=== PATIENT | female | born 1980 | race Hispanic/Latino ===

== ENCOUNTER 2018-12-22 21:27 | Emergency (ER) | payer OTHER, BC ==
[~2018-12-22] VITALS: Ht 167.6 cm; Wt 102.1 kg
--- OUTSIDE RECORDS SUMMARY | 2018-12-22 21:31 | XMS REPORT ---
Author Author Wesley Olson Organization e[employer] Address Unknown Phone Unavailable Care Team Providers Care Drug Safety Specialist Name Role Phone Wesley Olson CP Unavailable Allergies No Known Allergies Problems Problem Type Condition Code Onset Dates Condition Status Problem Obesity E66.9 Active Problem Menstrual cycle problem N92.6 Active Problem Other obesity due to excess calories E66.09 Active Problem BMI 38.0-38.9,adult Z68.38 Active Problem Vitamin D deficiency E55.9 Active Problem Other and unspecified hyperlipidemia E78.5 Active Problem Body mass index (BMI) of 35.0-35.9 in adult Z68.35 Active Problem Prediabetes R73.03 Active Medications No Known Medications Results No Known Results Summary Purpose eClinicalWorks Submission
--- OUTSIDE RECORDS SUMMARY | 2018-12-22 21:31 | XMS REPORT | Continuity of Care Document ---
Author Author [facility] Interface Address Unknown Phone Unavailable Problems Problem Status Onset Date Classification Date Reported Comments Source BMI 30.0-30.9,adult Active Diagnosis 09/10/2018 [facility] Primary Obesity Active Diagnosis 09/10/2018 [facility] Primary,[facility] Low vitamin D level Active Problem 09/10/2018 [facility] Environmental allergies Active Problem 09/10/2018 [facility] Primary Obesity Active Problem 12/28/2013 [facility] Vitamin d deficiency Active Diagnosis 12/28/2013 [facility] Prediabetes Active Problem 12/28/2013 [facility] Hyperlipidemia Active Problem 12/28/2013 [facility] BV Active Diagnosis 12/28/2013 [facility] Encounter for screening mammogram for breast cancer Active Diagnosis 06/23/2017 [facility] Encntr for general adult medical exam w/o abnormal findings Active Diagnosis 06/23/2017 [facility] Other obesity due to excess calories Active Problem 05/12/2018 [facility] BMI 38.0-38.9,adult Active Problem 05/12/2018 [facility] Vitamin D deficiency Active Problem 05/12/2018 [facility] Other and unspecified hyperlipidemia Active Problem 05/12/2018 [facility] Body mass index of 35.0-35.9 in adult Active Problem 05/12/2018 [facility] Prediabetes Active Problem 05/12/2018 [facility] Upper respiratory tract infection, unspecified type Active Diagnosis 08/11/2018 [facility] Subacute sinusitis, unspecified location Active Diagnosis 05/12/2018 [facility] Sore throat Active Diagnosis 05/12/2018 [facility] Medications Medication Details Route Status Patient Instructions Ordering Provider Order Date Source ProAir HFA 2 puffs as needed Inhalation Active 108 (90 Base) MCG/ACT Inhalation every 6 hrs as needed Chaitanya 08/10/2018 [facility] Levocetirizine Dihydrochloride 1 tablet in the evening Orally Active 5 MG Orally Once a day 08/10/2018 [facility] Fluticasone Propionate 1 spray in each nostril Nasally Active 50 MCG/ACT Nasally Once a day 08/10/2018 [facility] Dhgglyxuo-Ttxknmyx-PI 10 ml as needed Orally Active 30-2-10 MG/5ML Orally every 6 hrs as needed 08/10/2018 [facility] PredniSONE 1 tablet Orally Active 10 mg Orally Once a day 08/10/2018 [facility] Azithromycin as directed Orally Active 250 MG Orally Once a day 08/10/2018 [facility] Bromfed DM 10 ml Orally Active 30-2-10 MG/5ML Orally every 4 hrs prn [facility] 05/06/2018 [facility] Levaquin 1 tablet Orally Active 500 mg Orally Once a day Edwin Doyle 05/06/2018 [facility] Metronidazole 1 tablet Orally Active 500 mg Orally Twice a day [place] 12/02/2013 [facility] Vitamin D (Ergocalciferol) 1 capsule Orally Active 40550 UNIT Orally once per week [place] 11/23/2013 [facility] IUD's not defined NA Active [facility] IUD's Unknown Intrauterine Active Intrauterine [place] [facility] Claritin 1 tablet Orally Active 10 MG Orally Once a day [place] [facility] Progesterone 1 capsule at bedtime PO Active 50mg SR PO Once a day [facility] Claritin 1 tablet Orally Active 10 MG Orally Once a day [facility] Allergies, Adverse Reactions, Alerts Substance Category Reaction Severity Reaction type Status Date Reported Comments Source N.K.D.A. Adverse Reaction Info Not Available Adverse Reaction Active 09/09/2018 [facility] Immunizations Immunization Date Given Site Status Last Updated Comments Source Results Order Name Results Value Reference Range Date Interpretation Comments Source Vital Signs Vital Sign Value Date Comments Source Weight 231.6 09/09/2018 [facility] Height 64 09/09/2018 [facility] Temperature Oral (F) 98.5 F 09/09/2018 [facility] Heart Rate 101 09/09/2018 [place] [facility] Diastolic (mm Hg) 90 09/09/2018 [facility] Systolic (mm Hg) 130 09/09/2018 [facility] Weight 231.1 08/10/2018 [facility] Height 64 08/10/2018 [facility] Temperature Oral (F) 97.2 F 08/10/2018 [facility] Heart Rate 90 08/10/2018 [facility] Diastolic (mm Hg) 88 08/10/2018 [facility] Systolic (mm Hg) 128 08/10/2018 [facility] Weight 230 05/06/2018 [facility] Height 66 05/06/2018 [facility] Temperature Oral (F) 98.3 F 05/06/2018 [facility] Heart Rate 86 05/06/2018 [facility] Diastolic (mm Hg) 82 05/06/2018 [facility] Systolic (mm Hg) 120 05/06/2018 [facility] Weight 240 06/17/2017 [facility] Height 66 06/17/2017 [facility] Heart Rate 85 06/17/2017 [facility] Diastolic (mm Hg) 82 06/17/2017 [facility] Systolic (mm Hg) 122 06/17/2017 [facility] Weight 223 12/02/2013 [facility] Height 66 12/02/2013 [facility] Heart Rate 84 12/02/2013 [facility] Diastolic (mm Hg) 90 12/02/2013 [facility] Systolic (mm Hg) 128 12/02/2013 [facility] Weight 224 11/15/2013 [facility] Height 66 11/15/2013 [facility] Temperature Oral (F) 98.0 F 11/15/2013 [facility] Heart Rate 80 11/15/2013 [facility] Diastolic (mm Hg) 80 11/15/2013 [facility] Systolic (mm Hg) 124 11/15/2013 [facility] Encounters Location Location Details Encounter Type Encounter Number Reason For Visit Attending Provider ADM Date DC Date Status Source [facility] intake counselor/wwe/fbw [id number] 11/15/2013 11/15/2013 [facility] intake counselor/wwe/fbw [id number] 11/15/2013 11/15/2013 [facility] intake counselor/wwe/fbw [id number] 11/15/2013 11/15/2013 [facility] intake counselor/wwe/fbw [id number] 11/15/2013 11/15/2013 [facility] intake counselor/wwe/fbw [id number] 11/15/2013 11/15/2013 [facility] intake counselor/wwe/fbw [id number] 11/15/2013 11/15/2013 [facility] Test results [id number] 11/23/2013 11/23/2013 [facility] Test results [id number] 11/23/2013 11/23/2013 [facility] Test results [id number] 11/23/2013 11/23/2013 [facility] Test results [id number] 11/23/2013 11/23/2013 [facility] Test results [id number] 11/23/2013 11/23/2013 [facility] Update Demographics - Additional Info [id number] 11/25/2013 11/25/2013 [facility] Update Demographics - Additional Info [id number] 11/25/2013 11/25/2013 [facility] Update Demographics - Additional Info [id number] 11/25/2013 11/25/2013 [facility] Update Demographics - Additional Info [id number] 11/25/2013 11/25/2013 [facility] Update Demographics - Personal Info [id number] 11/25/2013 11/25/2013 [facility] Update Demographics - Additional Info [id number] 11/25/2013 11/25/2013 [facility] Update Demographics - Personal Info [id number] 11/25/2013 11/25/2013 [facility] Update Demographics - Additional Info [id number] 11/25/2013 11/25/2013 [facility] Update Demographics - Personal Info [id number] 11/25/2013 11/25/2013 [facility] Update Demographics - Additional Info [id number] 11/25/2013 11/25/2013 [facility] Update Demographics - Personal Info [id number] 11/25/2013 11/25/2013 [facility] Demographics - Additional Info [id number] 11/25/2013 11/25/2013 [facility] f/u lab [id number] 12/02/2013 12/02/2013 [facility] Procedures Procedure Code Date Perfomer Comments Source
--- OUTSIDE RECORDS SUMMARY | 2018-12-22 21:31 | XMS REPORT ---
Author Author Laurie Caban Organization e[employer] Address Unknown Phone Unavailable Care Team Providers Care Mixer Wet Pour Name Role Phone Laurie Caban CP Unavailable Encounters Encounter Location Date inpatient services rn/wwe/fbw [facility] November 15, 2013 Test results [facility] November 23, 2013 Problems Problem Type Condition ICD-9 Code Onset Dates Condition Status Problem Obesity 278.00 Active Medications Medication Code System Code Instructions Start Date End Date Status Dosage Vitamin D (Ergocalciferol) [facility] [address]-20 27035 UNIT Orally once per week November 23, 2013 Feb 21, 2014 Active 1 capsule Social History Social History Element Qualifiers Date Reported Ethnicity . Status , Is chinese your primary language? Yes November 15, 2013 Tobacco Use: . Are you a: never smoker November 15, 2013 Use of recreational / street drugs? . Answer: No November 15, 2013 Sexual Hx: . Had sex in the last 12 months (vaginal, oral, or anal)?: Yes, with: Men only, Use protection?: Yes, How often?: 70%, Have you ever had an STD?: Yes, Chlamydia?: Yes, LMP:: 11/03/2013 November 15, 2013 children . 1 son November 15, 2013 Do you have pets? . Status: Yes, Type: dog(s) November 15, 2013 Marital Status: . Single November 15, 2013 Caffeine intake? . Status: Yes, What type: Tea, Soft Drinks, 1 - 2 cup(s) a day November 15, 2013 Do you exercise? . Answer: No November 15, 2013 Do you drink alcohol? . Status: Yes, Type: Liquor, How often? Rarely, How much? 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
--- OUTSIDE RECORDS SUMMARY | 2018-12-22 21:31 | XMS REPORT ---
Author Author Wesley Olson Organization [employer] Address Unknown Phone Unavailable Care Team Providers Care Solution Director Name Role Phone Wesley Olson CP Unavailable [...]
--- OUTSIDE RECORDS SUMMARY | 2018-12-22 21:31 | XMS REPORT ---
Author Author Rina Tavares Organization [employer] Address Unknown Phone Unavailable Care Team Providers Care Power House Control Room Operator Name Role Phone Moiz Tavaresjiha Unavailable Allergies, Adverse Reactions, Alerts Substance Reaction Event Type N.K.D.A. Info Not Available Non Drug Allergy Problems Problem Type Condition Code Onset Dates Condition Status Assessment Obesity (BMI 30-39.9) E66.9 Active Problem Obesity (BMI 30-39.9) E66.9 Active Problem Environmental allergies Z91.09 Active Problem BMI 30.0-30.9,adult Z68.30 Active Assessment Environmental allergies Z91.09 Active Assessment BMI 30.0-30.9,adult Z68.30 Active Assessment Upper respiratory tract infection, unspecified type J06.9 Active Medications Medication Code System Code Instructions Start Date End Date Status Dosage Qfcobtmud-Juqvnhna-RH [facility] 29648305577 30-2-10 MG/5ML Orally every 6 hrs as needed Aug 10, 2018 Aug 20, 2018 Active 10 ml as needed PredniSONE ND 90029400262 10 mg Orally Once a day Aug 10, 2018 Aug 15, 2018 Active 1 tablet Fluticasone Propionate ND 96919881220 50 MCG/ACT Nasally Once a day Aug 10, 2018 Active 1 spray in each nostril IUD's NDC 0 Active not defined ProAir HFA [facility] 28911921181 108 (90 Base) MCG/ACT Inhalation every 6 hrs as needed Aug 10, 2018 Active 2 puffs as needed Azithromycin ND 20844787591 250 MG Orally Once a day Aug 10, 2018 Aug 15, 2018 Active as directed Levocetirizine Dihydrochloride ND 78296292126 5 MG Orally Once a day Aug 10, 2018 Sep 09, 2018 Active 1 tablet in the evening Vital Signs Date/Time: Aug 10, 2018 BMI 39.66 Index Weight 231.1 lbs Height 64 in Temperature 97.2 F Cardiac Monitoring Heart Rate 90 /min Blood Pressure Diastolic 88 mm Hg Blood Pressure Systolic 128 mm Hg Results No Known Results Summary Purpose eClinicalWorks Submission
--- OUTSIDE RECORDS SUMMARY | 2018-12-22 21:31 | XMS REPORT ---
Author Author Wesley Olson Organization [employer] Address Unknown Phone Unavailable Care Team Providers Care Basket Hand Braider Name Role Phone Wesley Olson Unavailable Encounters Encounter Location Date Update Demographics - Personal Info [facility] November 25, 2013 Update Demographics - Additional Info [facility] November 25, 2013 vocational training instructor/wwe/fbw [facility] November 15, 2013 Test results [facility] November 23, 2013 Update Demographics - Additional Info [facility] November 25, 2013 Problems Problem Type Condition ICD-9 Code Onset Dates Condition Status Problem Obesity 278.00 Active Social History Social History Element Qualifiers Date Reported Ethnicity . Status , Is setswana your primary language? Yes November 15, 2013 [...]
--- OUTSIDE RECORDS SUMMARY | 2018-12-22 21:31 | XMS REPORT ---
Author Author Wesley Olson Organization [employer] Address Unknown Phone Unavailable Care Team Providers Care Hoop Expander Name Role Phone Wesley Olson Unavailable Encounters Encounter Location Date Update Demographics - Personal Info [facility] November 25, 2013 Update Demographics - Additional Info [place] [facility] November 25, 2013 area director/wwe/fbw [place] [facility] November 15, 2013 Test results [facility] November 23, 2013 Update Demographics - Additional Info [facility] November 25, 2013 Problems Problem Type Condition [...]
--- OUTSIDE RECORDS SUMMARY | 2018-12-22 21:31 | XMS REPORT ---
Author Author Laurie Castano [facility] eClinicalWorks Address Unknown Phone Unavailable Care Team Providers Care Irrigation Foreman Name Role Phone Laurie Castano CP Unavailable Allergies, Adverse Reactions, Alerts Substance Reaction Event Type N.K.D.A. Info Not Available Non Drug Allergy Problems Problem Type Condition Code Onset Dates Condition Status Assessment Subacute sinusitis, unspecified location J01.90 Active Problem Obesity E66.9 Active Assessment Sore throat J02.9 Active Problem Menstrual cycle problem N92.6 Active Problem Other obesity due to excess calories E66.09 Active Problem BMI 38.0-38.9,adult Z68.38 Active Problem Vitamin D deficiency E55.9 Active Problem Other and unspecified hyperlipidemia E78.5 Active Problem Body mass index (BMI) of 35.0-35.9 in adult Z68.35 Active Problem Prediabetes R73.03 Active Medications Medication Code System Code Instructions Start Date End Date Status Dosage Progesterone NDC [address]-17 50mg SR PO Once a day Active 1 capsule at bedtime Bromfed DM NDC 57860645940 30-2-10 MG/5ML Orally every 4 hrs prn May 06, 2018 Jun 05, 2018 Active 10 ml IUD's NDC 0 Intrauterine Active not defined Levaquin NDC 89807758416 500 mg Orally Once a day May 06, 2018 May 16, 2018 Active 1 tablet Vital Signs Date/Time: May 06, 2018 BMI 37.12 Index Weight 230 lbs Height 66 in Temperature 98.3 F Cardiac Monitoring Heart Rate 86 /min Blood Pressure Diastolic 82 mm Hg Blood Pressure Systolic 120 mm Hg Results Name Result Date Reference Range Unit Abnormality Flag RAPID STREP ----Negative neg [id number] Summary Purpose eClinicalWorks Submission
--- OUTSIDE RECORDS SUMMARY | 2018-12-22 21:31 | XMS REPORT ---
Author Author Laurie Caban [facility] eClinicalWorks Address Unknown Phone Unavailable Care Team Providers Care Veterans Adviser Name Role Phone Laurie Caban CP Unavailable Allergies, Adverse Reactions, Alerts Substance Reaction Event Type N.K.D.A. Info Not Available Non Drug Allergy Encounters Encounter Location Date nonprofit director/wwe/fbw [facility] November 15, 2013 Problems Problem Type Condition ICD-9 Code Onset Dates Condition Status Assessment Encounter for routine gynecological examination V72.31 Active Assessment Obesity 278.00 Active Problem Obesity 278.00 Active Medications Medication Code System Code Instructions Start Date End Date Status Dosage Claritin MEDISPAN [address]-70 10 MG Orally Once a day Active 1 tablet IUD's Unknown 0 Intrauterine Active Unknown Social History Social History Element Qualifiers Date [...] 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 mm Hg Results CBC With Differential/Platelet Lymphs(-14-46 %) 42 Neutrophils(-40-74 %) 50 Baso (Absolute)(-0.0-0.2 x10E3/uL) 0.0 Hemoglobin(-11.1-15.9 g/dL) 14.4 Eos (Absolute)(-0.0-0.4 x10E3/uL) 0.1 Hematocrit(-34.0-46.6 %) 43.1 Monocytes(Absolute)(-0.1-0.9 x10E3/uL) 0.4 MCV(-79-97 fL) 89 Lymphs (Absolute)(-0.7-3.1 x10E3/uL) 2.5 MCH(-26.6-33.0 pg) 29.9 Neutrophils (Absolute)(-1.4-7.0 x10E3/uL) 3.0 MCHC(-31.5-35.7 g/dL) 33.4 Immature Granulocytes(-0-2 %) 0 Basos(-0-3 %) 0 RDW(-12.3-15.4 %) 14.9 Immature Grans (Abs)(-0.0-0.1 x10E3/uL) 0.0 WBC(-3.4-10.8 x10E3/uL) 6.0 Platelets(-155-379 x10E3/uL) 385 Eos(-0-5 %) 2 RBC(-3.77-5.28 x10E6/uL) 4.82 Monocytes(-4-12 %) 6 Panel [id number] HIV 1/O/2 Abs-Index Value(-<1.00 ) <1.00 HIV 1/O/2 Abs, Qual(-Non Reactive ) Non Reactive Urinalysis, Routine Occult Blood(-Negative ) Negative Ketones(-Negative ) Negative Glucose(-Negative ) Negative Protein(-Negative/Trace ) Negative WBC Esterase(-Negative ) Negative Urobilinogen,Semi-Qn(-0.0-1.9 mg/dL) 0.2 Bilirubin(-Negative ) Negative Microscopic Examination(- ) Comment Nitrite, Urine(-Negative ) Negative Specific [place](-1.005-1.030 ) 1.022 pH(-5.0-7.5 ) 5.5 Urine-Color(-Yellow ) Yellow Appearance(-Clear ) Clear TSH TSH(-0.450-4.500 uIU/mL) 3.090 Comp. Metabolic Panel (14) Potassium, Serum(-3.5-5.2 mmol/L) 5.1 Sodium, Serum(-134-144 mmol/L) 140 BUN/Creatinine Ratio(-8-20 ) 15 eGFR If Africn Am(- >59 mL/min/1.73) 135 eGFR If NonAfricn Am(- >59 mL/min/1.73) 117 Creatinine, Serum(-0.57-1.00 mg/dL) 0.67 BUN(-6-20 mg/dL) 10 Glucose, Serum(-65-99 mg/dL) 85 AST (SGOT)(-0-40 IU/L) 20 Globulin, Total(-1.5-4.5 g/dL) 3.2 ALT (SGPT)(-0-32 IU/L) 27 A/G Ratio(-1.1-2.5 ) 1.3 Bilirubin, Total(-0.0-1.2 mg/dL) 0.4 Alkaline Phosphatase, S(-39-117 IU/L) 77 Carbon Dioxide, Total(-19-28 mmol/L) 26 Calcium, Serum(-8.7-10.2 mg/dL) 9.6 Protein, Total, Serum(-6.0-8.5 g/dL) 7.5 Albumin, Serum(-3.5-5.5 g/dL) 4.3 Chloride, Serum(-97-108 mmol/L) 102 Hepatitis Panel (4) Hep B Core Ab, IgM(-Negative ) Negative HBsAg Screen(-Negative ) Negative Hep C Virus Ab(-0.0-0.9 s/co ratio) <0.1 Hep A Ab, IgM(-Negative ) Negative Summary Purpose eClinicalWorks Submission
--- OUTSIDE RECORDS SUMMARY | 2018-12-22 21:31 | XMS REPORT ---
Author Author Kai Perry Organization [employer] Address Unknown Phone Unavailable Care Team Providers Care [employer] Worker Name Role Phone Kai Perry CP Unavailable Allergies, Adverse Reactions, Alerts Substance Reaction Event Type N.K.D.A. Info Not Available Non Drug Allergy Encounters Encounter Location Date Update Demographics - Personal Info [facility] November 25, 2013 Update Demographics - Additional Info [facility] November 25, 2013 f/u lab [facility] December 02, 2013 nonprofit manager/wwe/fbw [facility] November 15, 2013 Test results [facility] November 23, 2013 Update Demographics - Additional Info [facility] November 25, 2013 Problems Problem Type Condition ICD-9 Code Onset Dates Condition Status Assessment Vitamin d deficiency 268.9 Active Problem Prediabetes 790.29 Active Problem Vitamin d deficiency 268.9 Active Problem Hyperlipidemia 272.4 Active Assessment Prediabetes 790.29 Active Assessment Hyperlipidemia 272.4 Active Problem Obesity 278.00 Active Assessment BV (bacterial vaginosis) 616.10 Active Medications Medication Code System Code Instructions Start Date End Date Status Dosage IUD's Unknown 0 Intrauterine Active Unknown Claritin [facility] [address]-53 10 MG Orally Once a day Active 1 tablet Metronidazole [facility] [address]-61 500 mg Orally Twice a day December 02, 2013 December 09, 2013 Active 1 tablet Vitamin D ([facility]rgocalciferol[facility] [address]-28 29098 UNIT Orally once per week November 23, 2013 Feb 21, 2014 Active 1 capsule Social History Social History Element Qualifiers Date Reported Ethnicity . Status , Is polish your primary language? Yes December 02, 2013 Tobacco Use: . Are you a: never smoker December 02, 2013 Use of recreational / street drugs? . Answer: No December 02, 2013 Sexual Hx: . Had sex in the last 12 months (vaginal, oral, or anal)?: Yes, with: Men only, Use protection?: Yes, How often?: 70%, Have you ever had an STD?: Yes, Chlamydia?: Yes, LMP:: 11/03/2013 December 02, 2013 children . 1 son December 02, 2013 Do you have pets? . Status: Yes, Type: dog(s) December 02, 2013 Marital Status: . Single December 02, 2013 Caffeine intake? . Status: Yes, What type: Tea, Soft Drinks, 1 - 2 cup(s) a day December 02, 2013 Do you exercise? . Answer: No December 02, 2013 Do you drink alcohol? . Status: Yes, Type: Liquor, How often? Rarely, How much? 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 Family history Qualifier Description Comment Date Reported Maternal Grandmother Comment not available December 02, 2013 Paternal Grandmother Comment not available December 02, 2013 Siblings alive Comment not available December 02, 2013 Maternal Grandfather Comment not available December 02, 2013 Father alive Comment not available December 02, 2013 Mother alive Comment not available December 02, 2013 Paternal Grandfather Comment not available December 02, 2013 Vital Signs Date/Time: December 02, 2013 Weight 223 lbs Height 66 in Cardiac Monitoring Heart Rate 84 /min Blood Pressure Diastolic 90 mm Hg Blood Pressure Systolic 128 mm Hg Summary Purpose [employer] Submission
--- OUTSIDE RECORDS SUMMARY | 2018-12-22 21:31 | XMS REPORT ---
Author Author Rina Tavares Organization [employer] Address Unknown Phone Unavailable Care Team Providers Care Operations Research Group Manager Name Role Phone Rina Tavares Unavailable Allergies, Adverse Reactions, Alerts Substance Reaction Event Type N.K.D.A. Info Not Available Non Drug Allergy Problems Problem Type Condition Code Onset Dates Condition Status Assessment BMI 30.0-30.9,adult Z68.30 Active Assessment Obesity (BMI 30-39.9) E66.9 Active Problem BMI 30.0-30.9,adult Z68.30 Active Problem Obesity (BMI 30-39.9) E66.9 Active Problem Low vitamin D level R79.89 Active Assessment Annual physical exam Z00.00 Active Assessment Low vitamin D level R79.89 Active Problem Environmental allergies Z91.09 Active Medications Medication Code System Code Instructions Start Date End Date Status Dosage IUD's NDC 0 Active not defined ProAir HFA [facility] 57043475889 108 (90 Base) MCG/ACT Inhalation every 6 hrs as needed Aug 10, 2018 Active 2 puffs as needed Levocetirizine Dihydrochloride ND 24122696176 5 MG Orally Once a day Aug 10, 2018 Sep 09, 2018 Active 1 tablet in the evening Fluticasone Propionate ND 88102447775 50 MCG/ACT Nasally Once a day Aug 10, 2018 Active 1 spray in each nostril Vital Signs Date/Time: Sep 09, 2018 BMI 39.75 Index Weight 231.6 lbs Height 64 in Temperature 98.5 F Cardiac Monitoring Heart Rate 101 /min Blood Pressure Diastolic 90 mm Hg Blood Pressure Systolic 130 mm Hg Results No Known Results Summary Purpose [employer] Submission
--- OUTSIDE RECORDS SUMMARY | 2018-12-22 21:31 | XMS REPORT ---
Author Author Laurie Castano [facility] [employer] Address Unknown Phone Unavailable Care Team Providers Care Tonger Name Role Phone Laurie Castano CP Unavailable Allergies, Adverse Reactions, Alerts Substance Reaction Event Type N.K.D.A. Info Not Available Non Drug Allergy Problems Problem Type Condition Code Onset Dates Condition Status Assessment Encounter for screening mammogram for breast cancer Z12.31 Active Problem Obesity E66.9 Active Assessment Encntr for general adult medical exam w/o abnormal findings Z00.00 Active Problem Menstrual cycle problem N92.6 Active Problem Other obesity due to excess calories E66.09 Active Problem BMI 38.0-38.9,adult Z68.38 Active Problem Vitamin D deficiency E55.9 Active Problem Other and unspecified hyperlipidemia E78.5 Active Problem Body mass index (BMI) of 35.0-35.9 in adult Z68.35 Active Problem Prediabetes R73.03 Active Assessment Body mass index (BMI) of 35.0-35.9 in adult Z68.35 Active Assessment Other obesity due to excess calories E66.09 Active Assessment BMI 38.0-38.9,adult Z68.38 Active Assessment Menstrual cycle problem N92.6 Active Medications Medication Code System Code Instructions Start Date End Date Status Dosage Progesterone [facility] [address]-87 50mg SR PO Once a day Active 1 capsule at bedtime Claritin [facility] 61486598114 10 MG Orally Once a day Active 1 tablet IUD's NDC 0 Intrauterine Active not defined Vital Signs Date/Time: Jun 17, 2017 BMI 38.73 Index Weight 240 lbs Height 66 in Cardiac Monitoring Heart Rate 85 /min Blood Pressure Diastolic 82 mm Hg Blood Pressure Systolic 122 mm Hg Results Name Result Date Reference Range Unit Abnormality Flag TSH ----TSH 2.400 [id number] 0.450-4.500 uIU/mL CBC With Differential/Platelet ----Basos 0 [id number] Not Estab. % ----MCV 89 01236933 79-97 fL ----Hematocrit 42.0 20170617 34.0-46.6 % ----Eos 1 20170617 Not Estab. % ----MCHC 34.0 20170617 31.5-35.7 g/dL ----Monocytes 5 20170617 Not Estab. % ----MCH 30.2 20170617 26.6-33.0 pg ----Lymphs 41 [id number] Not Estab. % ----Eos (Absolute) 0.1 20170617 0.0-0.4 x10E3/uL ----WBC 7.5 20170617 3.4-10.8 x10E3/uL ----Monocytes(Absolute) 0.4 [id number] 0.1-0.9 x10E3/uL ----Lymphs (Absolute) 3.1 [id number] 0.7-3.1 x10E3/uL ----Hemoglobin 14.3 20170617 11.1-15.9 g/dL ----Neutrophils (Absolute) 3.9 20170617 1.4-7.0 x10E3/uL ----RBC 4.74 [id number] 3.77-5.28 x10E6/uL ----Immature Grans (Abs) 0.0 [id number] 0.0-0.1 x10E3/uL ----Immature Granulocytes 0 [id number] Not Estab. % ----Neutrophils 53 20170617 Not Estab. % ----Baso (Absolute) 0.0 20170617 0.0-0.2 x10E3/uL ----RDW 14.6 20170617 12.3-15.4 % ----Platelets 403 74090931 150-379 x10E3/uL H Hemoglobin A1c ----Hemoglobin A1c 5.9 97607171 4.8-5.6 % H Urinalysis, Routine ----Glucose Negative 20170617 Negative ----Protein Negative 20170617 Negative/Trace ----Occult Blood Negative 20170617 Negative ----Ketones Negative 20170617 Negative ----Urobilinogen,Semi-Qn 0.2 20170617 0.2-1.0 mg/dL ----Nitrite, Urine Negative [id number] Negative ----Bilirubin Negative 20170617 Negative ----Appearance Clear 20170617 Clear ----WBC Esterase Negative 20170617 Negative ----pH 6.0 20170617 5.0-7.5 ----Microscopic Examination Comment 20170617 ----Urine-Color Yellow 20170617 Yellow ----Specific Harvey 1.018 20170617 1.005-1.030 Lipid Panel ----LDL Cholesterol Calc 130 87707511 0-99 mg/dL H ----VLDL Cholesterol Del 62 44863921 5-40 mg/dL H ----HDL Cholesterol 48 20170617 >39 mg/dL ----Triglycerides 310 20170617 0-149 mg/dL H ----Cholesterol, Total 240 20170617 100-199 mg/dL H Comp. Metabolic Panel (14) ----Creatinine, Serum 0.54 20170617 0.57-1.00 mg/dL L ----BUN 9 20170617 6-20 mg/dL ----eGFR If Africn Am 141 60694752 >59 mL/min/1.73 ----eGFR If NonAfricn Am 123 [id number] >59 mL/min/1.73 ----Sodium, Serum 136 20170617 134-144 mmol/L ----BUN/Creatinine Ratio 17 20170617 9-23 ----Chloride, Serum 97 20170617 96-106 mmol/L ----Potassium, Serum 4.1 20170617 3.5-5.2 mmol/L ----Carbon Dioxide, Total 21 20170617 18-29 mmol/L ----Protein, Total, Serum 7.7 20170617 6.0-8.5 g/dL ----Calcium, Serum 9.1 20170617 8.7-10.2 mg/dL ----Globulin, Total 3.4 20170617 1.5-4.5 g/dL ----Albumin, Serum 4.3 20170617 3.5-5.5 g/dL ----Bilirubin, Total 0.5 20170617 0.0-1.2 mg/dL ----Glucose, Serum 84 20170617 65-99 mg/dL ----A/G Ratio 1.3 20170617 1.2-2.2 ----ALT (SGPT) 25 20170617 0-32 IU/L ----Alkaline Phosphatase, S 79 20170617 39-117 IU/L ----AST (SGOT) 18 20170617 0-40 IU/L Summary Purpose eClinicalWorks Submission
--- OUTSIDE RECORDS SUMMARY | 2018-12-22 21:31 | XMS REPORT ---
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 Status , Is czech your primary language? Yes November 15, 2013 [...]
--- NOTE | 2018-12-22 23:23 | Diagnostic Imaging Report ---
Lumbar Spine Radiographs: 3 views HISTORY: Pain COMPARISON: None available. DISCUSSION: Some of the osseous structures are partially obscured by stool and bowel gas. There are five non-rib bearing lumbar vertebral bodies. The alignment of the spine is within normal limits. No displaced fracture or compression deformity is identified. Vertebral body heights are maintained. IUD projecting over pelvis. IMPRESSION: No acute radiographic abnormality. Signed by: Dr. Jerad Funes MD on 12/22/2018 11:20 PM
--- NOTE | 2018-12-22 23:24 | Diagnostic Imaging Report ---
Thoracic Spine Radiographs: 2 views HISTORY: Pain COMPARISON: None available. DISCUSSION: Normal alignment of thoracic spine vertebral bodies. No evidence of acute displaced fracture or dislocation. No compression deformity. Vertebral body heights are maintained. IMPRESSION: No acute radiographic abnormality. Signed by: Dr. Jerad Funes MD on 12/22/2018 11:21 PM
--- NOTE | 2018-12-22 23:50 | Diagnostic Imaging Report ---
Exams: Head and cervical spine CTs without IV contrast History: Fall, pain Comparison studies: None Technique: Axial images were obtained from the brain and cervical spine. Coronal and sagittal images reconstructed from the axial data. Dose modulation, iterative reconstruction, and/or weight based adjustment of the mA/kV was utilized to reduce the radiation dose to as low as reasonably achievable. Intravenous contrast: None Findings: Head CT: Scalp: No abnormalities. Bones: No fractures, blastic or lytic lesions. Extra-axial spaces: No masses. No fluid collections. Brain sulci: Appropriate for age. Ventricles: Normal in size and configuration. No hydrocephalus. Parenchyma: No abnormal densities. No masses, hemorrhage, acute or chronic vascular insults. Sellar/suprasellar region: No abnormalities. Craniocervical junction: The foramen magnum is patent. No Chiari one malformation. Cervical spine CT: Fractures: None. Soft tissues: No gross abnormalities. Atlantoaxial articulation: Intact. Alignment: Straightened curvature may be positional. No subluxations. Cervicomedullary junction: No abnormalities. The foramen magnum is patent. Vertebrae: No infection or neoplasm. Degenerative changes: Minimally degenerated disks in the included upper thoracic spine. Patent canal and foramina. Incidental findings: Impacted right determined minimally. IMPRESSION: Head CT: No abnormalities. Cervical spine CT: 1. No cervical spine fracture or subluxation 2. Cannot exclude ligament, spinal cord and or vascular abnormalities on the basis of this examination. Signed by: Dr. Andrew Espinosa M.D. on 12/22/2018 11:46 PM
== END 2018-12-23 00:03 | disposition home or self-care (01) ==
LOC: FSED 21:27
DX: S16.1XXA Strain of muscle, fascia and tendon at neck level, initial encounter (principal); S39.012A Strain of muscle, fascia and tendon of lower back, initial encounter; S29.012A Strain of muscle and tendon of back wall of thorax, initial encounter; W01.0XXA Fall on same level from slipping, tripping and stumbling without subsequent striking against object, initial encounter; Y93.01 Activity, walking, marching and hiking; Y92.89 Other specified places as the place of occurrence of the external cause
CPT/HCPCS: 70450; 72070; 72100; 72125; 81025; 99283